=== PATIENT | female | born 1980 | race Two or more races ===

== ENCOUNTER → 2020-03-12 | Outpatient (CLI) | payer OTHER ==
[2020-03-12 13:28] LABS: BILIRUBIN,URINE NEGATIVE (NEG); CLARITY,URINE CLEAR; COLOR,URINE YELLOW; NITRITE,URINE NEGATIVE (NEG); PROTEIN,URINE NEGATIVE (NEG-TRACE); UROBILINOGEN,URINE 0.2 mg/dL (0.2 mg/dL)
[2020-03-12 13:48] LABS: BACTERIA,URINE FEW /HPF (0-FEW)
[2020-03-12 15:29] LABS: BASO # 0.1 x10^3/uL (0.0-0.2); BASO % 1 % (0-3); EOS # 0.1 x10^3/uL (0.0-0.7); EOS % 3 % (0-3); HEMATOCRIT 33.2 % (36.0-47.0); HEMOGLOBIN 10.8 g/dL (12.0-15.5); LYMPH # 2.5 x10^3/uL (1.0-4.8); LYMPH % 41 % (24-48); MEAN CORPUSCULAR HEMOGLOBIN 26 pg (25-35); MEAN CORPUSCULAR HGB CONC 33 g/dL (31-37); MEAN CORPUSCULAR VOLUME 81 fL (79-100); MONO # 0.4 x10^3/uL (0.0-1.1); MONO % 7 % (0-9); NEUT # 2.9 x10^3/uL (1.8-7.7); NEUT % 48 % (31-73); PLATELET COUNT 225 x10^3/uL (140-400); RED BLOOD COUNT 4.11 x10^6/uL (3.50-5.40)
[2020-03-12 15:50] LABS: ALBUMIN 3.6 g/dL (3.4-5.0); ALBUMIN/GLOBULIN RATIO 0.9 (1.0-1.7); CALCIUM 9.1 mg/dL (8.5-10.1); CREATININE 0.7 mg/dL (0.6-1.0); GFR 94.2; POTASSIUM 4.4 mmol/L (3.5-5.1); TOTAL BILIRUBIN 0.4 mg/dL (0.2-1.0); TOTAL PROTEIN 7.5 g/dL (6.4-8.2)
[2020-03-12 23:08] LABS: HEMOGLOBIN A1C 5.4 % (4.8-5.6)
== END ==
LOC: SURGPAT 12:54
PROVIDERS: ATTEND Obstetrics & Gynecology
DX: Z01.812 Encounter for preprocedural laboratory examination (principal); R10.2 Pelvic and perineal pain; D25.9 Leiomyoma of uterus, unspecified; Z20.828 Contact with and (suspected) exposure to other viral communicable diseases
CPT/HCPCS: 80053; 81001; 83036; 85025; 87086; U0003

== ENCOUNTER 2020-03-18 06:10 | Observation (INO) | payer OTHER ==
[2020-03-18] VITALS (14 sets, daily range): BP systolic 103–114; BP diastolic 51–68
[~2020-03-18] VITALS: Ht 160 cm; Wt 189.0 kg
[~2020-03-18 06:10] MED LIST: BUPIVACAINE-EPI 0.25%-1:200000 MPF 30 ML VIAL. INJ ONE
[2020-03-18] MEDS ORDERED: INSULIN LISPRO 100 UNIT/ML 3ML VIAL for OP,RR ONLY. SQ PRN (06:30)
[2020-03-18] MEDS ORDERED: LIDOCAINE 1% PF 2 ML VIAL. ID PRN (07:00)
[2020-03-18] MEDS ORDERED: ONDANSETRON PF 4 MG/2 ML VIAL. IV PRN ×2 (07:00→10:30)
[2020-03-18] MEDS ORDERED: IV RINGERS,LACTATED 1000ML 1,000 ML IV SCH (07:00)
[2020-03-18] MEDS ORDERED: fentaNYL PF VIAL 100 MCG/2 ML VIAL IV PRN ×2 (07:00)
[2020-03-18] MEDS ORDERED: HYDROmorphone 2 MG/ML VIAL IV PRN (07:00)
[2020-03-18] MEDS ORDERED: MORPHINE SULFATE 2 MG/ML VIAL. IV PRN ×2 (07:00→10:30)
[2020-03-18] MEDS ORDERED: PROCHLORPERAZINE 10 MG/2 ML VIAL. IV PRN (07:00)
[2020-03-18] MEDS ORDERED: ESTROGENS, CONJ VAGINAL CREAM 30GM TUBE. ONE (07:04)
[2020-03-18] MEDS ORDERED: INDIGOTINDISULFONATE SODIUM 40 MG/5 ML AMPUL. ONE (07:04)
[2020-03-18] MEDS ORDERED: GLYCOPYRROLATE 1 MG/5 ML VIAL. ONE (07:16)
[2020-03-18] MEDS ORDERED: MIDAZOLAM HCL/PF 2 MG/2 ML VIAL. ONE (07:17)
[2020-03-18] MEDS ORDERED: LIDOCAINE 2% PF 5 ML VIAL. ONE (07:17)
[2020-03-18] MEDS ORDERED: KETOROLAC 30 MG/ML VIAL. ONE (07:17)
[2020-03-18] MEDS ORDERED: DEXAMETHASONE SOD PHOS 4 MG/ML VIAL ONE (07:17)
[2020-03-18] MEDS ORDERED: NEOSTIGMINE METHYLSULFATE 5 MG/5 ML SYRINGE. ONE (07:17)
[2020-03-18] MEDS ORDERED: fentaNYL PF VIAL 100 MCG/2 ML VIAL ONE ×3 (07:17→09:55)
[2020-03-18] MEDS ORDERED: ROCURONIUM 50 MG/5 ML VIAL. ONE ×2 (07:17→08:11)
[2020-03-18] MEDS ORDERED: PROPOFOL 10 MG/ML (20ML) VIAL. IV ONE (07:18)
[2020-03-18] MEDS ORDERED: ONDANSETRON PF 4 MG/2 ML VIAL. ONE (07:18)
[2020-03-18] MEDS ORDERED: PHENYLEPHRINE in 0.9% NACL PF 1 MG/10 ML SYRINGE. IV ONE (07:56)
[2020-03-18] MEDS ORDERED: ePHEDrine PF IN SALINE 50 MG/10 ML SYRINGE. IV ONE (08:06)
[2020-03-18] MEDS ORDERED: PROCHLORPERAZINE 10 MG/2 ML VIAL. ONE (10:14)
--- NOTE | 2020-03-18 10:24 | PDOC ---
BRIEF OPERATIVE NOTE Date: Mar 18, 2020 Pre-Op Diagnosis Pelvic pain, fibroid uterus, menorrhagia, anemia, left ovarian cyst Post-Op Diagnosis same plus adhesive disease and suspected left endometrioma, enlarged fibroid uterus Procedure Performed LAVH/LSO/right salpingectomy/lysis of adhesions Surgeon Dr. Mariam Sargent [employer] Supervisor [employer] Anesthesiologist Dr. Vivas Anesthesia Type: General Blood Loss 250cc IV Fluid 1700cc Urine Output 400cc clear via grove Specimens Obtained cervix, uterus, left tube/ovary, right tube Findings enlarged fibroid uterus, uterus and left round adhesed to anterior abdominal wall, bladder adhesions, enlarged cystic lesion on left ovary with chocolate fluid and omentum adhesed to it and ovary stuck to uterus, normal right tube and ovary, grossly normal appendix Complications none Operative Note [id number] MARIAM SARGENT MD Mar 18, 2020 10:24
[2020-03-18] MEDS ORDERED: LACTULOSE 20 GM/30 ML SOLUTION. PO PRN (10:30)
[2020-03-18] MEDS ORDERED: SIMETHICONE 80 MG TAB.CHEW PO PRN (10:30)
[2020-03-18] MEDS ORDERED: 0.9 % SODIUM CHLORIDE 10 ML DISP.SYRIN. IV PRN (10:30)
[2020-03-18] MEDS ORDERED: oxyCODONE/APAP 5/325 1 TAB TABLET PO PRN (10:30)
[2020-03-18] MEDS ORDERED: diphenhydrAMINE HCL 25 MG CAPSULE PO PRN (10:30)
[2020-03-18] MEDS ORDERED: MAGNESIUM HYDROXIDE 2,400 MG/30 ML ORAL.SUSP. PO PRN (10:30)
[2020-03-18] MEDS ORDERED: HYDROcodone/APAP 5/325MG 1 TAB TABLET PO PRN (10:30)
[2020-03-18] MEDS ORDERED: ZOLPIDEM 5 MG TABLET. PO PRN (10:30)
[2020-03-18] MEDS ORDERED: MAG HYDROX/ALUMINUM HYD/SIMETH 30 ML ORAL.SUSP PO PRN (10:30)
[2020-03-18] MEDS ORDERED: NALOXONE 0.4 MG/ML VIAL. IV PRN (10:30)
[2020-03-18] MEDS ORDERED: CALCIUM CARBONATE 500 MG TAB.CHEW PO PRN (10:30)
--- NOTE | 2020-03-18 11:01 | OP ---
DATE OF SURGERY: 03/18/2020 PREOPERATIVE DIAGNOSES: Pelvic pain, enlarged fibroid uterus, menorrhagia to anemia and left ovarian cyst. POSTOPERATIVE DIAGNOSES: Pelvic pain, enlarged fibroid uterus, menorrhagia to anemia and left ovarian cyst with suspected left endometrioma, a very enlarged fibroid uterus and adhesive disease. SURGEON: Rickie Sargent MD GRINDER NEEDLE TIP: [employer] ANESTHESIOLOGIST: Dr. Vivas. PROCEDURES: Laparoscopic-assisted vaginal hysterectomy, left salpingo-oophorectomy, right salpingectomy and lysis of adhesions. ANESTHESIA: General. ESTIMATED BLOOD LOSS: 250 mL. URINE OUTPUT: 400 mL, clear via Castro catheter. INTRAVENOUS FLUIDS: 1700 mL of Crystalloid. SPECIMENS: Cervix, uterus, left tube and ovary, and right tube. FINDINGS: Enlarged fibroid uterus and left round ligament adhesed to the anterior abdominal wall, mild bladder adhesions, enlarged cystic lesion on the left ovary with chocolate fluid in it with either suspected endometrioma or an old hemorrhagic blood cyst and omentum adhesed to the left ovarian cystic complex, normal right tube and ovary, grossly normal appendix, and grossly normal right upper quadrant. COMPLICATIONS: None. DESCRIPTION OF PROCEDURE: This patient was taken to the operating room where general anesthesia was placed. The patient was placed in dorsal lithotomy position in [facility]. The patient's abdomen and vagina were both prepped and draped in the normal sterile fashion and a Castro catheter had been inserted under sterile technique. Upon my arrival, a timeout was performed. Once everyone agreed on the patient, the site, the procedure, the antibiotics, the procedure was initiated. A bivalve speculum was placed in the patient's vagina. A single-tooth tenaculum was used to grasp the anterior lip of the cervix. A 10 mL of 0.25% Marcaine with epinephrine was used to circumferentially inject around the cervix for both hemodissection and hemostatic purposes later. The Valtchev uterine manipulator was placed through the endocervical os, locked on the single tooth tenaculum and the bivalve speculum was then removed. Top gloves were discarded and changed. Attention was then turned to the abdomen where a supraumbilical skin incision was made with the scalpel. A curved Haylee was used to dissect through the subcuticular layer to the fascia. The 5 mm Visiport was used to directly enter the abdominal cavity. Opening patient pressure was 5-6 mmHg. Carbon dioxide gas was used to then appropriately insufflate the abdominal cavity to maintain a pressure of 15 mmHg. The patient was placed in Trendelenburg position and direct abdominal placement was confirmed via the laparoscope. There were no adhesions on the upper anterior abdominal wall. So, transilluminating the abdominal wall finding an area clear of any vasculature, injecting with 0.25% Marcaine with epinephrine and making a small incision and placing the disposable blunt 5 mm trocar in under direct visualization. The 4-5 mL of air was placed in these trocar cuffs. The camera was moved laterally to look at the umbilical port. When it was clear, it was also injected with 4-5 mL of air in the trocar cuff. The umbilical one was injected with 0.25% Marcaine as well, making the incision and then putting it in as were both the lower quadrants. Once this was done, the initial inspection showed a normal right upper quadrant, normal appendix, grossly normal bowel, but she did have adhesions on the left side and omentum stuck to the left tubo-ovarian complex. The left tubo-ovarian complex was not just stuck to the omentum that was easily peeled off, but stuck to the uterus and when touched leaked chocolate fluid consistent with either an old hemorrhagic cyst or likely an endometrioma. The left round ligament was adhesed to the anterior abdominal wall, pulling this enlarged fibroid uterus up as well. There were some mild bladder adhesions from her prior , I am sure. The right tube and ovary were normal with evidence of a prior tubal ligation. So, initially adhesions were taken off the left tube and ovary, they were elevated up to the anterior abdominal wall. The ureter was found in the pelvis, staying high on the infundibulopelvic ligament, it was decided to take the cystic complex that was likely an endometrioma and stuck to everything including the uterus, so it was removed. Going up to the left round ligament, I took it high on the anterior abdominal wall and it came down nicely. The remainder of the bladder then looked okay. We were able to elevate it with the [place] and going across with the monopolar hook, cut it and pull it down and create the bladder flap sharply. The right tube and ovary were normal, so when it was elevated, we could see the ureter very easily on the right side, no adhesions, normal right ovary, so we left the right ovary per patient request, going above the ovary, below the tube, cauterizing and cutting with the LigaSure, doing a salpingectomy. The the right tube was amputated and easily pulled out one of the ports. So, the right tube was separate. The right ovary was left, so I crossed the right uteroovarian pedicle, cauterizing and cutting and the right round ligament cauterizing and cutting and then going down and meeting that bladder flap anteriorly. Once the bladder was down, the uterines were obtained on the right side, cauterizing and cutting and staying inside that pedicle going down through the cardinal and broad ligaments on the right side. Once this was done, the left side, crossing contralaterally, hugging the cervix, staying right on the uterus, going down and not just getting the uterines but staying inside that pedicle and getting the cardinal and broad ligaments, cauterizing and cutting with the LigaSure. Once the adhesion was taken down and the left tube and ovary were taken with the uterus, the remainder of the uterus and bladder flap on that side lower were normal. Once we got past the large fibroid that was coming off the fundus, the uterus was enlarged, but there were no lateral adhesions and everything else looked good. Once we did this, the uterus was completely free posteriorly and blanched and mobile, everything was removed from the abdomen and attention was turned vaginally. Valtchev and single tooth tenaculum were removed. A weighted speculum was placed in the patient's vagina. Thyroid Kecia clamps were placed on the anterior and posterior lips of the cervix respectively. A scalpel was used to make a circumferential incision in the cervix. The posterior cul-de-sac was easily sharply entered where it was bulging. The Chand scissors were used to extend this laterally and then #0 Vicryl stitch was used to secure the posterior peritoneum here to the vaginal cuff with an interrupted suture. A curved Haylee was placed on it and the needle was cut and passed off. The short weighted speculum was removed and replaced with the long weighted Bethany speculum in the posterior cul-de-sac. The bladder flap was created sharply using the blunt end of the plastic anchor to gently push up and the knife to gently move up the anterior bladder peritoneum off of the cervix. Once it was released easy, the open Ray-Melodie was used to gently slight it up and entered the anterior cul-de-sac. It was removed and the curved [place] was placed in the anterior cul-de-sac. At this point, curved Henry clamps x 2 were placed on the patient's left uterosacral ligament where they were doubly clamped with curved Heaneys, cut with curved Chand scissors and suture ligated x 2 with 0 Vicryl. Second one was taken through the vaginal cuff securing uterosacral ligament to the vaginal cuff, tagging it with a straight Haylee clamp, cutting and passing the needle off. This was done exactly the same on the right side, double clamping the uterosacrals with curved Henry's, cutting with curved Chand scissors, suture ligating x 2 with 0 Vicryl, taking the second one through the vaginal cuff securing uterosacral ligament to the vaginal cuff and cutting and passing the needle off. The remaining pedicle on both sides were delineated with the curved mixture and the vaginal LigaSure was used to cauterize and cut it. Once it was free, the cervix, uterus, left tube and ovary were delivered in total. Again, remember the right tube had already been detached and passed off and the right ovary remained with the patient. So cervix, uterus, left tube and ovary were the specimen and again the right tube had already been passed off. So at this point, sponge stick was used to examine the pedicles. Both pedicles were grasped with a Burlisher and cauterized just to reinforce the side pedicles. Once they could easily be seen, the anterior bladder peritoneum was grasped with a long Allis. The long Bethany was removed and replaced with the short weighted vaginal speculum. There was a tiny bit of cuff bleeding, but everything else at this point looked good. So, 2-0 Vicryl was taken through the anterior bladder peritoneum, left uterosacral ligament, posterior peritoneum and right uterosacral ligament, thus closing the peritoneum in a pursestring like fashion. Once this was done, the right and left uterosacral tags were clipped and the cuff was closed in an anterior to posterior running locked fashion with a full length 2-0 Vicryl and tied to that posterior cuff tag. Everything down vaginally looked excellent with hemostasis. So, all gloves were discarded and removed. All instruments had been counted x 2 by OR personnel and were correct. So, a second look was taken above. The patient was placed back in Trendelenburg. The overhead lights were dimmed, gas was reinsufflated and copious irrigation revealed hemostasis. Tisseel was placed over the cuff. The left infundibulopelvic ligament, the ovarian pedicle, the cuff and going up a normal right ovary remained. There was nothing in either right or left pericolic gutters, everything was clear. So at this point, the right and left lower quadrant ports, the gas was taken out of the trocars, the right one was removed. As the gas deflated, all the pedicles remained dry. The anterior abdominal wall adhesions from the round was slightly oozy, so I placed my trocar back in and put Mikala over this with excellent results and then I deflated it and watched it, it was dry, white powdery and everything was good. So, I took the right lower quadrant out under direct visualization, it was hemostatic. I took the left one out under direct visualization, it was hemostatic. Gas was released from the umbilical port. The trocar cuff was deflated and then it was removed as well. All three port sites were closed with 4-0 nylon at the skin and the procedure was ended. The patient was awakened from anesthesia and brought to recovery room in stable condition. RICKIE SARGENT MD DR: ROSALIE/theresa JOB#: [id number] / [id number]
[2020-03-18 11:16] LABS: HEMOGLOBIN 11.3 g/dL (12.0-15.5); RED BLOOD COUNT 4.31 x10^6/uL (3.50-5.40); RED CELL DISTRIBUTION WIDTH 16.4 % (11.5-14.5)
--- NOTE | 2020-03-24 16:07 | PATHOLOGY ---
[facility] Accession Number: [id number] . 01 Material submitted: . uterus - CERVIX,UTERUS,BILATERAL TUBES, LEFT OVARY . 01 Clinical history: . PELVIC PAIN, FIBROIDS . 02 Diagnosis: Uterus with attached left fallopian tube and ovary and detached right fallopian tube, laparoscopic assisted vaginal hysterectomy with bilateral salpingectomy and left oophorectomy: - Cellular leiomyoma, uterine fundus, measuring 5.2 cm in greatest dimension (uterine weight 250 grams). - Mild chronic cervicitis, focal. - Proliferative endometrium. - Posterior uterine serosal adhesions. - Congestion of bilateral fallopian tubes. 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 - Endometriosis of ovary, focal. - Mucinous cystadenoma of ovary. - Cystic follicles of ovary, multiple. (JPM:niall; 03/23/2020) S 03/24/2020 1528 Local . 02 Comment: There is no evidence of malignancy. The case is also examined by Dr. Contreras, who has a specialty interest in SECURITY INFRASTRUCTURE ENGINEER pathology. He concurs with the diagnosis. (JPM:niall; 03/23/2020) . 02 Electronically signed: . Alonzo Mroel MD, Pathologist NPI- [id number] . 01 Gross description: . Received in formalin labeled "Cholico, Debo, cervix, uterus, bilateral tubes, left ovary" is an intact hysterectomy specimen with attached left adnexa and detached right fallopian tube. The uterus weighs 250 g and measures 14.5 cm from fundus to cervix, 9.0 cm from cornu to cornu, and 5.6 cm from anterior to posterior. The serosa is pink-vela and smooth with focal hemorrhage and adhesions on the posterior aspect. The ectocervix is pink-vela and glistening with a slitlike cervical os measuring 1.8 cm. The cervix is probed patent and the uterus is opened to reveal a 2.6 x 1.1 cm endocervical canal and a 4.5 x 3.8 cm endometrial cavity. A vela-yellow whorled leiomyoma is present in the fundus, measuring 5.2 cm in greatest dimension. The leiomyoma displays focal hemorrhage. Upon sectioning, the average endometrial thickness is 0.5 cm and the average myometrial thickness is 2.7 cm. No additional leiomyomata are identified. The detached right fimbriated fallopian tube measures 6.1 cm in length and 1.0 cm in diameter, has a smooth external surface, and is sectioned to reveal a pinpoint lumen. The attached left fimbriated fallopian tube measures 3.5 cm in length and 1.0 cm in diameter, has a smooth external surface, and is sectioned to reveal a pinpoint lumen. The left ovary weighs 20 g and measures 5.7 x 3.5 x 2.5 cm. Upon sectioning, multiple simple cysts are present, ranging from 0.2-2.5 cm in greatest dimension. The cysts have smooth linings without papillary excrescences. A few of the cysts contain red-brown hemorrhagic material, and the remaining cysts display pink-clear watery fluid. The uninvolved ovarian parenchyma displays multiple corpora lutea ranging from 0.6-1.1 cm. Nuclear Reactor Operator sections of the specimen are submitted as follows: A1 12:00 cervix A2 6:00 cervix A3 anterior uterus A4 posterior uterus A5-A7 patient intake representative leiomyoma A8 right fallopian tube A9 left fallopian tube A10-A12 left ovary ([facility] [place] 03/18/2020[place] [facility] 03/18/2020 [facility] Local . 02 Pathologist provided ICD-10: D25.9, D27.0, N72, N80.2 . 02 CPT . 756683, [id number] Specimen Comment: A courtesy copy of this report has been sent to [phone] Specimen Comment: Report sent to Performed at: 01 [facility] [address], [place] [id number] MD Gabriel Coombs MD Phone: [phone] Performed at: 02 [facility] [place] [id number] MD Alonzo Morel MD Phone: [phone]
== END 2020-03-18 18:45 | disposition home or self-care (01) ==
LOC: SURG 06:10 → EDUNIT# 07:30 → 3 NORTH 10:00
PROVIDERS: ADMIT Obstetrics & Gynecology; ATTEND Obstetrics & Gynecology
DX: D25.9 Leiomyoma of uterus, unspecified (principal); N83.202 Unspecified ovarian cyst, left side; N80.9 Endometriosis, unspecified; N92.0 Excessive and frequent menstruation with regular cycle; K66.0 Peritoneal adhesions (postprocedural) (postinfection); D64.9 Anemia, unspecified; Z98.891 History of uterine scar from previous surgery; Z98.51 Tubal ligation status
CPT/HCPCS: 36415; 58552; 81025; 85027; 86850; 86900; 86901; 96360; 96361; A7015; G0378; G0379; J0690; J0780; J1100; J1885; J2250; J2370; J2405; J2704; J2710; J3010; J3480; J3490; J7030; J7120